=== PATIENT | male | born 1960 | race Caucasian/White ===

== ENCOUNTER 2022-12-16 19:59 | Emergency (ER) | payer OTHER, SELFPAY ==
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
--- NOTE | 2022-12-16 20:35 | PC.NURSE ---
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
--- NOTE | 2022-12-16 20:42 | PC.NURSE ---
This RN spoke with Ying bender [facility] fundraising sale representative.
== END 2022-12-16 23:24 | disposition expired ==
PROVIDERS: Emergency Provider Emergency Medicine; PCP Family Medicine
DX: I46.9 Cardiac arrest, cause unspecified (principal); E11.9 Type 2 diabetes mellitus without complications
CPT/HCPCS: 92950; 92960; 96374; 96375; 99285; J0171; J7030